=== PATIENT | female | born 1965 | race Caucasian/White ===

== ENCOUNTER 2017-01-20 15:40 | Emergency (ER) | payer BC ==
[2017-01-20 16:57] LABS: HEMATOCRIT 36.8 % (35.0-47.0); HEMOGLOBIN 12.5 gm/dl (11.6-16.0); MEAN CELL VOLUME 88.5 fl (81-97); MEAN PLATELET VOLUME 10.5 fl (7.4-10.4); PLATELET COUNT 243 K/uL (130-400); RED BLOOD COUNT 4.16 M/uL (3.80-5.40); RED CELL DISTRIBUTION WIDTH 14.6 % (11.5-14.5); WHITE BLOOD COUNT W/O DIFF 4.1 K/uL (4.2-12.2)
[2017-01-20] MEDS ORDERED: 0.9 % SODIUM CHLORIDE 1,000 ML BAG IV ONE (17:03)
[2017-01-20 17:12] LABS: ALB/GLOB RATIO 1.2 (1.1-1.8); ALBUMIN 4.6 gm/dL (3.5-5.0); ALKALINE PHOSPHATASE 50 U/L (38-126); ALT/SGPT 32 U/L (9-52); ANION GAP 11.8 (7-16); AST/SGOT 17 U/L (14-36); BILIRUBIN,TOTAL 0.49 mg/dL (0.2-1.3); BLOOD UREA NITROGEN 13 mg/dL (7-17); CARBON DIOXIDE 24.2 mmol/L (22-30); CREATININE 1.2 mg/dL (0.52-1.04); EST GLOMERULAR FILTRATION RATE 50 ml/min; GLUCOSE,RANDOM 75 mg/dL (70-110); TOTAL PROTEIN 8.5 gm/dL (6.3-8.2)
[2017-01-20 17:23] LABS: TROPONIN I < 0.012 ng/mL (0.00-0.034)
[2017-01-20 17:57] LABS: ERYTHROCYTE SEDIMENTATION RATE 50 mm/hr (0-30)
[2017-01-20 18:24] LABS: URINE APPEARANCE CLOUDY; URINE BILIRUBIN NEGATIVE (NEGATIVE); URINE BLOOD SMALL (NEGATIVE); URINE COLOR YELLOW; URINE GLUCOSE (UA) NEGATIVE (NEGATIVE); URINE KETONE NEGATIVE (NEGATIVE); URINE LEUKOCYTE ESTERASE NEGATIVE (NEGATIVE); URINE NITRITE NEGATIVE (NEGATIVE); URINE PROTEIN NEGATIVE (NEGATIVE); URINE UROBILINOGEN 0.2 E.U./dL (0.20 - 1.00)
[2017-01-20 18:30] LABS: URINE BACTERIA NONE SEEN; URINE RBC 0 - 2 (NONE SEEN); URINE WBC NONE SEEN (0-2/hpf)
--- NOTE | 2017-01-20 18:34 | Emergency Department Record ---
History of Present Illness - General Chief Complaint: Syncope Stated Complaint: SYNCOPE/LOW BP Time Seen by Provider: 01/20/17 16:05 Source: Patient Mode of Arrival: Wheelchair Limitations: No limitations Travel/Exposure to [place] Within 21 Days of Symptoms: No - History of Present Illness Initial Comments: pt was [facility] because she had had a syncopal event and had hurt her back and had blood in her urine. she has had a few syncopal events in the past but has never had a medical evaluation for them. her right flank hurts from the fall. pt states she was standing and felt lightheaded and could feel herself blacking out. pt had a bp in the 70s as well. MD Complaint: Loss of consciousness Onset/Timin -: Days(s) Prodromal Symptoms: Lightheaded Duration of Episode: 20 -: Second(s) Injuries Sustained Associated with Event: Back Current Symptoms: None Treatments Prior to Arrival: None Treatment Prior to Arrival Comment:: Flexiril - [place] Coma Scale Eye Response: (4) Open spontaneously Motor Response: (6) Obeys commands Verbal Response: (5) Oriented [place]iden Total: 15 - Related Data On Hormonal Control: No Home Medications Medication Instructions Recorded Confirmed Last Taken Cyclobenzaprine HCl [Flexeril] 10 mg PO ASDIR 01/20/17 01/20/17 01/20/17 Quetiapine Fumarate [Seroquel] 400 mg PO QHS 01/20/17 01/20/17 Unknown Tramadol HCl 50 mg PO Q8H 01/20/17 01/20/17 01/20/17 Previous Rx's Medication Instructions Recorded Pentosan Polysulfate Sodium 100 mg PO TID #270 capsule 12/30/14 [Elmiron] Sumatriptan Succinate [Imitrex] 50 mg PO ASDIR PRN #10 tablet 12/30/14 Allergies Allergy/AdvReac Type Severity Reaction Status Date / Time methotrexate Allergy Severe HIVES Verified 01/20/17 15:45 desvenlafaxine succinate Allergy Intermediate BODY ACHES Verified 01/20/17 15:45 [From Pristiq] hydroxychloroquine sulfate Allergy Intermediate HIVES Verified 01/20/17 15:45 [From Plaquenil] Penicillins Allergy Intermediate HIVES Verified 01/20/17 15:45 Sulfa (Sulfonamide Allergy Intermediate HIVES Verified 01/20/17 15:45 Antibiotics) zolpidem tartrate AdvReac Severe sucidal Verified 01/20/17 15:45 [From Ambien] Anticonvulsants Allergy Severe ALTERED Uncoded 05/01/15 10:19 MENTAL STATUS Antidepressants Allergy Severe ALTERED Uncoded 05/01/15 10:19 MENTAL STATUS Travel Screening - Travel/Exposure Within Last 30 Days Have you traveled within the last 30 days?: No Review of Systems Reviewed: No additional complaints except as noted below Constitutional: Reports: As per HPI. Denies: Chills, Fever, Malaise, Night sweats, Weakness, Weight change Eyes: Reports: As per HPI. Denies: Eye discharge, Eye pain, Photophobia, Vision change ENT: Reports: As per HPI. Denies: Congestion, Dental pain, Ear pain, Epistaxis , Hearing loss, Throat pain Respiratory: Reports: As per HPI. Denies: Cough, Dyspnea, Hemoptysis, Stridor, Wheezes Cardiovascular: Reports: As per HPI. Denies: Arrhythmia, Chest pain, Dyspnea on exertion, Edema, Murmurs, Orthopnea, Palpitations, Paroxysmal nocturnal dyspnea, Rheumatic Fever, Syncope Endocrine: Reports: As per HPI. Denies: Fatigue, Heat or cold intolerance, Polydipsia, Polyuria Gastrointestinal: Reports: As per HPI. Denies: Abdominal pain, Constipation, Diarrhea, Hematemesis, Hematochezia, Melena, Nausea, Vomiting Genitourinary: Reports: As per HPI. Denies: Abnormal menses, Discharge, Dyspareunia, Dysuria, Frequency, Hematuria, Incontinence, Retention, Urgency Musculoskeletal: Reports: As per HPI. Denies: Arthralgia, Back pain, Gout, Joint swelling, Myalgia, Neck pain Skin: Reports: As per HPI. Denies: Bruising, Change in color, Change in hair/ nails, Lesions, Pruritus, Rash Neurological: Reports: As per HPI. Denies: Abnormal gait, Confusion, Headache, Numbness, Paresthesias, Seizure, Tingling, Tremors, Vertigo, Weakness Psychiatric: Reports: As per HPI. Denies: Anxiety, Auditory hallucinations, Depression, Homicidal thoughts, Suicidal thoughts, Visual hallucinations Hematological/Lymphatic: Reports: As per HPI. Denies: Anemia, Blood Clots, Easy bleeding, Easy bruising, Swollen glands Past Medical History - SOCIAL HISTORY Smoking Status: Never smoker Alcohol Use: None Drug Use: None - RESPIRATORY Hx Respiratory Disorders: Yes Hx Asthma: Yes - CARDIOVASCULAR Hx Cardio Disorders: No - NEURO Hx Neuro Disorders: No - GI Hx GI Disorders: No - Hx Genitourinary Disorders: No - ENDOCRINE Hx Endocrine Disorders: Yes Hx Thyroid Disease: Yes - MUSCULOSKELETAL Hx Musculoskeletal Disorders: Yes Hx Fibromyalgia: Yes Comment:: Connective Tissue Disorder - PSYCH Hx Psych Problems: No - HEMATOLOGY/ONCOLOGY Hx Hematology/Oncology Disorders: Yes Hx Blood Disorders: Yes (CVID) Family Medical History Any Significant Family History?: Yes Hx Heart Disease: Grandparents Physical Exam - General General Appearance: Alert, Oriented x3, Cooperative, Mild distress - Head Head exam: Normal inspection - Eye Eye exam: Normal appearance, PERRL, EOMI Pupils: Normal accommodation - ENT ENT exam: Normal exam, Mucous membranes moist, Normal external ear exam, Normal orophraynx, TM's normal bilaterally Ear exam: Normal external inspection. negative: External canal tenderness Nasal Exam: Normal inspection. negative: Discharge, Sinus tenderness Mouth exam: Normal external inspection, Tongue normal Teeth exam: Normal inspection. negative: Dental caries Throat exam: Normal inspection. negative: Tonsillar erythema, Tonsillar exudate - Neck Neck exam: Normal inspection, Full ROM. negative: Tenderness - Respiratory Respiratory exam: Normal lung sounds bilaterally. negative: Respiratory distress - Cardiovascular Cardiovascular Exam: Regular rate, Normal rhythm, Normal heart sounds - GI/Abdominal GI/Abdominal exam: Soft, Normal bowel sounds. negative: Tenderness - Rectal Rectal exam: Deferred - exam: Deferred - Extremities Extremities exam: Normal inspection, Full ROM, Normal capillary refill. negative: Tenderness - Back Back exam: Reports: Normal inspection, Full ROM. 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 ] Respiratory 18 16 16 Rate Blood Pressure 95/72 Blood Pressure 114/79 129/88 [Right Arm] Pulse Ox 98 97 98 Medical Decision Making - Lab Data Result diagrams: 01/20/17 15:30 01/20/17 15:30 Lab Results 01/20/17 01/20/17 01/20/17 Range/Units 15:30 15:30 15:30 WBC 4.1 L (4.2-12.2) K/uL RBC 4.16 (3.80-5.40) M/uL Hgb 12.5 (11.6-16.0) gm/dl Hct 36.8 (35.0-47.0) % MCV 88.5 (81-97) fl MCH 30.0 (27-33) pg MCHC 34.0 (32-36) g/dl RDW 14.6 H (11.5-14.5) % Plt Count 243 (130-400) K/uL MPV 10.5 H (7.4-10.4) fl Neutrophils % 51.0 (47-80) % Eosinophils % Not Reportable Basophils % Not Reportable Lymphocytes 38.0 (16-45) % Monocytes 11.0 H (0-9) % ESR 50 H (0-30) mm/hr D-Dimer 1.44 H (0-0.59) mg/L FEU Sodium 138 (136-145) mmol/L Potassium 3.9 (3.5-5.1) mmol/L Chloride 102 (98-107) mmol/L Carbon Dioxide 24.2 (22-30) mmol/L Anion Gap 11.8 (7-16) BUN 13 (7-17) mg/dL Creatinine 1.2 H (0.52-1.04) mg/dL Estimated GFR 50 ml/min Random Glucose 75 (70-110) mg/dL Calcium 9.7 (8.5-10.1) mg/dL Total Bilirubin 0.49 (0.2-1.3) mg/dL AST 17 (14-36) U/L ALT 32 (9-52) U/L Alkaline Phosphatase 50 (38-126) U/L Troponin I < 0.012 (0.00-0.034) ng/mL Total Protein 8.5 H (6.3-8.2) gm/dL Albumin 4.6 (3.5-5.0) gm/dL Globulin 3.9 (1.4-4.8) gm/dL Albumin/Globulin Ratio 1.2 (1.1-1.8) Disposition Disposition: Discharge Clinical Impression: Dehydration Lumbar transverse process fracture Qualifiers: Encounter type: initial encounter Fracture type: closed Qualified Code(s): S32.009A - Unspecified fracture of unspecified lumbar vertebra, initial encounter for closed fracture Syncope Qualifiers: Syncope type: unspecified Qualified Code(s): R55 - Syncope and collapse Disposition: Home, Self-Care Condition: (1) Good Instructions: Syncope (ED), Thoracolumbar Fracture (ED) Additional Instructions: follow up with family doctor. have halter monitor and echo and further evaluation of syncope Forms: Patient Portal Access Quality - Quality Measures Quality Measures: N/A - Blood Pressure Screening Does Patient Have Any of the Following: No Blood Pressure Classification: Normal BP Reading Systolic Measurement: 95 Diastolic Measurement: 72 Screening for High Blood Pressure: < Normal BP, F/U Not Required > [G8783]
--- NOTE | 2017-01-22 13:12 | CT ANGIOGRAM REPORT ---
EXAM: CT ANGIOGRAM CHEST CTA w contrast HISTORY: FALL THREE DAYS AGO. PAIN TO RIGHT LOWER BACK. ELEVATED D-DIMER. TECHNIQUE: Routine CTA examination of the thorax is performed utilizing a pulmonary embolus protocol with 78 mL of Omnipaque-350 utilized. Coronal and sagittal maximum intensity projection reformatted images are generated and reviewed. COMPARISON: Two-view chest radiographic examination dated 05/28/2009. FINDINGS: Opacification of the pulmonary arteries is borderline satisfactory for interpretation. No luminal filling defect is noted in the outflow tract, main arteries, lobar arteries, nor proximal segmental arteries to suggest acute pulmonary embolic disease. The heart is not enlarged. The thoracic aorta is normal in caliber. No definite thoracic aortic dissection. No mediastinal nor hilar mass/lymphadenopathy is seen. No mediastinal hematoma. There is mild dependent atelectasis in each lung base, right greater than left. Biapical lung scarring. The lungs and pleural spaces are otherwise clear. The adrenal glands are not enlarged. A too small to characterize hypodense lesion is demonstrated in the posteromedial upper pole of the right kidney measuring 10 mm. This is nonspecific but likely a cyst. There is likely a nondisplaced fracture of the right transverse process of what is likely L3. This is incompletely imaged. No other convincing acute osseous abnormality identified. No lytic or blastic bone lesion is seen. IMPRESSION: 1. NO CT EVIDENCE OF ACUTE PULMONARY EMBOLIC DISEASE NOR INTRATHORACIC HEMATOMA. MILD DEPENDENT ATELECTASIS IN EACH LUNG BASE, RIGHT GREATER THAN LEFT. 2. APPARENT NONDISPLACED FRACTURE OF THE RIGHT TRANSVERSE PROCESS OF WHAT IS LIKELY L3. 3. TOO SMALL TO CHARACTERIZE HYPODENSE LESION IN THE UPPER POLE OF THE RIGHT KIDNEY IS NONSPECIFIC BUT LIKELY A CYST. JOB NUMBER: [id number] [facility]
== END 2017-01-20 19:42 | disposition home or self-care (01) ==
LOC: ER 15:40
DX: S32.009A Unspecified fracture of unspecified lumbar vertebra, initial encounter for closed fracture (principal); R55 Syncope and collapse; R79.89 Other specified abnormal findings of blood chemistry; E86.0 Dehydration; W19.XXXA Unspecified fall, initial encounter
CPT/HCPCS: 99284 ×2; 85651; 84484; 80053; 81001; 85379; 85027; 71275; 93005; 93010; Q9967

== ENCOUNTER 2018-07-22 11:22 | Emergency (ER) | payer BC, OTHER ==
--- NOTE | 2018-07-22 12:30 | Emergency Department Record ---
History of Present Illness - General Chief complaint: Extremity Problem Stated complaint: ANKLES INJURED Time Seen by Provider: 07/22/18 12:19 Source: Patient Mode of Arrival: Wheelchair Limitations: No limitations - History of Present Illness Initial comments: pt slipped on kitchen floor yesterday twisting both ankles. still painful MD Complaint: Extremity pain Onset/Timin -: Days(s) Location: Bilateral, Ankle History of Same: Yes (prior R ankle fx x2) Severity scale (1-10): 7 Quality: Sharp, Stabbing Improves with: Medication, Rest Worsens with: Walking, Weight bearing Associated Symptoms: Denies other symptoms - Related Data Previous Rx's Medication Instructions Recorded Pentosan Polysulfate Sodium 100 mg PO TID #270 capsule 12/30/14 [Elmiron] Sumatriptan Succinate [Imitrex] 50 mg PO ASDIR PRN #10 tablet 12/30/14 Allergies Allergy/AdvReac Type Severity Reaction Status Date / Time methotrexate Allergy Severe HIVES Verified 01/20/17 15:45 desvenlafaxine succinate Allergy Intermediate BODY ACHES Verified 01/20/17 15:45 [From Pristiq] hydroxychloroquine sulfate Allergy Intermediate HIVES Verified 01/20/17 15:45 [From Plaquenil] Penicillins Allergy Intermediate HIVES Verified 01/20/17 15:45 Sulfa (Sulfonamide Allergy Intermediate HIVES Verified 01/20/17 15:45 Antibiotics) zolpidem tartrate AdvReac Severe sucidal Verified 01/20/17 15:45 [From Ambien] Anticonvulsants Allergy Severe ALTERED Uncoded 05/01/15 10:19 MENTAL STATUS Antidepressants Allergy Severe ALTERED Uncoded 05/01/15 10:19 MENTAL STATUS Travel Screening - Travel/Exposure Within Last 30 Days Have you traveled within the last 30 days?: No - Travel/Exposure Within Last Year Have you traveled outside the [place] in the last year?: No - Additonal Travel Details Have you been exposed to anyone with a communicable illness?: No Review of Systems Reviewed: No additional complaints except as noted below Constitutional: Reports: As per HPI. Denies: Chills, Fever, Malaise, Night sweats, Weakness, Weight change Eyes: Reports: As per HPI. Denies: Eye discharge, Eye pain, Photophobia, Vision change ENT: Reports: As per HPI. Denies: Congestion, Dental pain, Ear pain, Epistaxis , Hearing loss, Throat pain Respiratory: Reports: As per HPI. Denies: Cough, Dyspnea, Hemoptysis, Stridor, Wheezes Cardiovascular: Reports: As per HPI. Denies: Arrhythmia, Chest pain, Dyspnea on exertion, Edema, Murmurs, Orthopnea, Palpitations, Paroxysmal nocturnal dyspnea, Rheumatic Fever, Syncope Endocrine: Reports: As per HPI. Denies: Fatigue, Heat or cold intolerance, Polydipsia, Polyuria Gastrointestinal: Reports: As per HPI. Denies: Abdominal pain, Constipation, Diarrhea, Hematemesis, Hematochezia, Melena, Nausea, Vomiting Genitourinary: Reports: As per HPI. Denies: Abnormal menses, Discharge, Dyspareunia, Dysuria, Frequency, Hematuria, Incontinence, Retention, Urgency Musculoskeletal: Reports: As per HPI. Denies: Arthralgia, Back pain, Gout, Joint swelling, Myalgia, Neck pain Skin: Reports: As per HPI. Denies: Bruising, Change in color, Change in hair/ nails, Lesions, Pruritus, Rash Neurological: Reports: As per HPI. Denies: Abnormal gait, Confusion, Headache, Numbness, Paresthesias, Seizure, Tingling, Tremors, Vertigo, Weakness Psychiatric: Reports: As per HPI. Denies: Anxiety, Auditory hallucinations, Depression, Homicidal thoughts, Suicidal thoughts, Visual hallucinations Hematological/Lymphatic: Reports: As per HPI. Denies: Anemia, Blood Clots, Easy bleeding, Easy bruising, Swollen glands Past Medical History - SOCIAL HISTORY Smoking Status: Never smoker - RESPIRATORY Hx Respiratory Disorders: Yes Hx Asthma: Yes - CARDIOVASCULAR Hx Cardio Disorders: No - NEURO Hx Neuro Disorders: No - GI Hx GI Disorders: No - Hx Genitourinary Disorders: Yes Comment:: interstital cystitis - ENDOCRINE Hx Endocrine Disorders: Yes Hx Thyroid Disease: Yes - MUSCULOSKELETAL Hx Musculoskeletal Disorders: Yes Hx Fibromyalgia: Yes Comment:: Connective Tissue Disorder - PSYCH Hx Psych Problems: Yes Hx Anxiety: Yes Hx Depression: Yes - HEMATOLOGY/ONCOLOGY Hx Hematology/Oncology Disorders: Yes Hx Blood Disorders: Yes (CVID) Family Medical History Any Significant Family History?: Yes Hx Heart Disease: Grandparents Physical Exam - General General Appearance: Alert, Oriented x3, Cooperative, Mild distress - Head Head exam: Normal inspection - Eye Eye exam: Normal appearance, PERRL, EOMI Pupils: Normal accommodation - ENT ENT exam: Normal exam, Mucous membranes moist, Normal external ear exam, Normal orophraynx Ear exam: Normal external inspection. negative: External canal tenderness Nasal Exam: Normal inspection. negative: Discharge, Sinus tenderness Mouth exam: Normal external inspection, Tongue normal Teeth exam: Normal inspection. negative: Dental caries Throat exam: Normal inspection. negative: Tonsillar erythema, Tonsillar exudate - Neck Neck exam: Normal inspection, Full ROM. negative: Tenderness - Respiratory Respiratory exam: Normal lung sounds bilaterally. negative: Respiratory distress - Cardiovascular Cardiovascular Exam: Regular rate, Normal rhythm, Normal heart sounds - GI/Abdominal GI/Abdominal exam: Soft, Normal bowel sounds. negative: Tenderness - Rectal Rectal exam: Deferred - exam: Deferred - Extremities Extremities exam: Normal inspection, Full ROM, Normal capillary refill, Tenderness Image of Feet: 1 - tender 2 - tender - Back Back exam: Reports: Normal inspection, Full ROM. Denies: Muscle spasm, Rash noted, Tenderness - Neurological Neurological exam: Alert, CN II-XII intact, Normal gait, Oriented X3, Reflexes normal - Psychiatric Psychiatric exam: Normal affect, Normal mood - Skin Skin exam: Dry, Intact, Normal color, Warm Course Vital Signs 07/22/18 12:00 Temperature 97.6 F Pulse Rate 102 H Respiratory 18 Rate Blood Pressure 115/83 Pulse Ox 96 Disposition Disposition: Discharge Clinical Impression: Left ankle sprain Qualifiers: Encounter type: initial encounter Involved ligament of ankle: unspecified ligament Qualified Code(s): S93.402A - Sprain of unspecified ligament of left ankle, initial encounter Right ankle sprain Qualifiers: Encounter type: initial encounter Involved ligament of ankle: unspecified ligament Qualified Code(s): S93.401A - Sprain of unspecified ligament of right ankle, initial encounter Disposition: Home, Self-Care Condition: (1) Good Instructions: Ankle Sprain (ED), Ankle Stirrup Splint (ED) Additional Instructions: follow up with family doctor. ice and elevate. motrin for pain Forms: Patient Portal Access Quality - Quality Measures Quality Measures: N/A - Blood Pressure Screening Does Patient Have Any of the Following: No Blood Pressure Classification: Pre-Hypertensive BP Reading Systolic Measurement: 115 Diastolic Measurement: 83 Screening for High Blood Pressure: < Pre-Hypertensive BP, F/U Documented > [ G8950] Pre-Hypertensive Follow-up Interventions: Follow-up with rescreen every year.
--- NOTE | 2018-07-24 18:18 | RADIOLOGY REPORT ---
DATE: 07/22/2018. EXAM: LEFT ANKLE. HISTORY: Pain since fall. TECHNIQUE: Three views of the left ankle. COMPARISON: None. FINDINGS: Small calcification is seen near the tip of the fibula which is probably chronic. There is some soft tissue swelling laterally. Bones and joints otherwise are unremarkable with no definite acute fracture. The ankle mortis appears preserved. IMPRESSION: 1. TINY CALCIFICATION NEAR THE TIP OF THE FIBULA LIKELY DUE TO OLD INJURY OR DEVELOPMENTAL VARIATION. THIS APPEARS CHRONIC. 2. NO DEFINITE ACUTE FRACTURE. 3. IF THERE IS CONTINUED CLINICAL CONCERN FOR FRACTURE, FOLLOW-UP FILMS AND/OR BONE SCAN COULD BE OBTAINED. JOB NUMBER: [id number] [facility]
--- NOTE | 2018-07-25 04:46 | RADIOLOGY REPORT ---
DATE: 07/22/2018. EXAM: RIGHT ANKLE. HISTORY: Injury with right ankle pain. TECHNIQUE: Three views of the right ankle. COMPARISON: 06/30/2015. FINDINGS: No acute fracture seen. A faint, chronic-appearing calcification is seen at the tip of the right fibula. There is mild deformity of the right distal fibula, likely due to an old, healed fracture. There is soft tissue swelling. The ankle mortis appears preserved. No distal tibial fracture. IMPRESSION: 1. CHRONIC-APPEARING DEFORMITY OF THE DISTAL RIGHT FIBULA, LIKELY DUE TO AN OLD , HEALED FRACTURE. 2. CHRONIC-APPEARING CALCIFICATION AT THE TIP OF THE DISTAL RIGHT FIBULA, MOST LIKELY DUE TO OLD INJURY OR DEVELOPMENTAL VARIATION. 3. SOFT TISSUE SWELLING. JOB [facility]BER: [id number] [facility]
== END 2018-07-22 13:45 | disposition home or self-care (01) ==
LOC: ER 11:22
DX: S93.402A Sprain of unspecified ligament of left ankle, initial encounter (principal); S93.401A Sprain of unspecified ligament of right ankle, initial encounter; X50.1XXA Overexertion from prolonged static or awkward postures, initial encounter; Y92.000 Kitchen of unspecified non-institutional (private) residence as the place of occurrence of the external cause
CPT/HCPCS: 99283; 99284